=== PATIENT | male | born 1975 | race Caucasian/White ===

== ENCOUNTER 2020-10-20 14:51 | Emergency (ER) | payer BC ==
[~2020-10-20] VITALS: Ht 165.1 cm; Wt 77.1 kg
--- NOTE | 2020-10-20 15:17 | ED Lower Extremity ---
General Chief Complaint: Lower Extremity Stated Complaint: CALLUSES ON R FOOT Source: patient Exam Limitations: language barrier History of Present Illness Date Seen by Provider: Oct 20, 2020 Time Seen by Provider: 15:02 Initial Comments This is a well-appearing 45-year-old male who presents to ER with complaints of right ankle pain. States he rolled his ankle, proximal a 1 week ago and has persistent swelling and pain. Has tried Tylenol with minimal relief. Denies numbness and tingling. No other injuries. Allergies and Home Medications Allergies Coded Allergies: No Known Drug Allergies (Unverified , 10/20/20) Patient Home Medication List Home Medication List Reviewed: Yes Review of Systems Constitutional: no symptoms reported EENTM: no symptoms reported Respiratory: no symptoms reported Cardiovascular: no symptoms reported Gastrointestinal: no symptoms reported Genitourinary: no symptoms reported Musculoskeletal: see HPI Skin: no symptoms reported Psychiatric/Neurological: No Symptoms Reported Physical Exam Vital Signs Vital Signs - First Documented 10/20/20 15:16 Temp 36.5 Pulse 97 Resp 16 B/P (MAP) 147/91 (109) Pulse Ox 98 O2 Delivery Room Air Capillary Refill : Height, Weight, BMI Height: '" Weight: lbs. oz. kg; BMI Method: General Appearance: WD/WN, no apparent distress Neck: full range of motion, normal inspection Cardiovascular: regular rate, rhythm, no murmur Respiratory: lungs clear, normal breath sounds Hips: bilateral hip non-tender, bilateral hip normal inspection, bilateral hip normal range of motion Legs: bilateral leg non-tender, bilateral leg normal inspection, bilateral leg normal range of motion Knees: bilateral knee non-tender, bilateral knee normal inspection, bilateral knee normal range of motion Ankles: left ankle non-tender, left ankle normal inspection, left ankle normal range of motion, left ankle no evidence of injury; right ankle bone tenderness, right ankle limited range of motion Feet: bilateral foot non-tender, bilateral foot normal inspection, bilateral foot normal range of motion Progress/Results/Core Measures Results/Orders My Orders Orders - JC MENA CAFE COOK Ankle, Right, 3 Views (10/20/20 15:10) Ibuprofen Tablet (Motrin Tablet) (10/20/20 15:30) Medications Given in ED Vital Signs/I&O 10/20/20 10/20/20 15:16 16:30 Temp 36.5 36.9 Pulse 97 90 Resp 16 16 B/P (MAP) 147/91 (109) 136/93 Pulse Ox 98 97 O2 Delivery Room Air Room Air Progress Progress Note : Progress Note Pt. examined, in no acute distress. Orders placed for ankle x-ray. X-ray shows mild irregularity of the tip of the medial malleolus. On exam he has point tenderness over this region. Placed in walking boot and recommended follow up with ortho provider of choice. Reviewed discharge POC and he is agreeable with plan. Diagnostic Imaging Diagonstic Imaging: Xray Plain Films/CT/US/NM/MRI: ankle Comments NAME: TAMIR MENJIVAR [facility] REC#: [id number] PT STATUS: REG ER : 1975 PHYSICIAN: JC MENA CAFE COOK ADMIT DATE: 10/20/20/ER Signed Date of Exam:10/20/20 ANKLE, RIGHT, 3 VIEWS EXAMINATION: Right ankle radiograph, 3 views. COMPARISON: None. HISTORY: 45-year-old male, fall. Right ankle pain. FINDINGS: There is slight irregularity of the tip of the medial malleolus. There is no otherwise identified potential acute fracture. The alignment of the ankle mortise is unremarkable. There is no tibiotalar joint effusion. The joint spaces are well preserved. There is no radiopaque foreign body. IMPRESSION: 1. Mild irregularity of the tip of the medial malleolus which could relate to a very small minimally displaced fracture. Recommend correlation for focal pain at this exact site. 2. No otherwise identified potential acute fracture. 3. Unremarkable alignment of the ankle mortise. Dictated by: Dictated on workstation # [id number] Dict: 10/20/20 1551 Trans: 10/20/20 1701 [facility] [id number] Interpreted by: ANNA CALDERON MD Electronically signed by: ANNA CALDERON MD 10/20/20 1701 Departure Impression Primary Impression: Ankle pain Disposition: HOME, SELF-CARE Condition: Improved Departure-Patient Inst. Decision time for Depature: 15:56 Referrals: NO,LOCAL PHYSICIAN (PCP/Family) Primary Care Physician Patient Instructions: Ankle Fracture (DC) Add. Discharge Instructions: Plan: 1. Discharge home. Walk with a walker to reduce the amount of weight you put on your leg. 2. Rest, ice 20 minutes at a time every couple of hours for swelling and pain, use gómez wrap and keep elevated above your heart as much as possible. 3. May take Tylenol or Ibuprofen as needed for pain per package directions. Do not take more than directed. 4. Follow up with ortho provider of your choice. Local providers include Dr. Owen in [place] [phone]. Please call the office for appointment. 5. Return for any new or concerning symptoms. All discharge instructions reviewed with patient and/or family. Voiced understanding. Work/School Note: Work Release Form Other Restrictions Listed Below: Non weight bearing until follow up with Ortho provider. Restrictions: No weight bearing, must use crutches to walk. Use crutches until follow up. JC MENA APRN Oct 20, 2020 15:17
[2020-10-20] MEDS ORDERED: IBUPROFEN 600 MG (MOTRIN) TAB PO ONE (15:30)
--- NOTE | 2020-10-20 15:54 | Diagnostic Imaging Report ---
EXAMINATION: Right ankle radiograph, 3 views. COMPARISON: None. HISTORY: 45-year-old male, fall. Right ankle pain. FINDINGS: There is slight irregularity of the tip of the medial malleolus. There is no otherwise identified potential acute fracture. The alignment of the ankle mortise is unremarkable. There is no tibiotalar joint effusion. The joint spaces are well preserved. There is no radiopaque foreign body. IMPRESSION: 1. Mild irregularity of the tip of the medial malleolus which could relate to a very small minimally displaced fracture. Recommend correlation for focal pain at this exact site. 2. No otherwise identified potential acute fracture. 3. Unremarkable alignment of the ankle mortise. Dictated by: Dictated on workstation # [id number]
--- NOTE | 2020-10-20 16:28 | NUR ---
Waiting on DME to bring crutches.
--- NOTE | 2020-10-20 16:29 | NUR ---
DME arrived with crutches at this time.
[2020-10-20 16:30] VITALS: BP 136/93
== END 2020-10-20 16:30 | disposition home or self-care (01) ==
LOC: ER 14:55
DX: M25.571 Pain in right ankle and joints of right foot (principal)
CPT/HCPCS: 73610

== ENCOUNTER 2021-09-05 08:58 | Emergency (ER) | payer BC ==
[~2021-09-05] VITALS: Ht 165 cm; Wt 70.0 kg
[2021-09-05 09:48] LABS: BASOPHILS # (AUTO) 0.1 10^3/uL (0.0-0.1); BASOPHILS % (AUTO) 1 % (0-10); EOSINOPHILS # (AUTO) 0.9 10^3/uL (0.0-0.3); EOSINOPHILS % (AUTO) 15 % (0-10); HEMATOCRIT 44 % (40-54); HEMOGLOBIN 15.5 g/dL (13.3-17.7); LYMPHOCYTES # (AUTO) 2.2 10^3/uL (1.0-4.0); LYMPHOCYTES % (AUTO) 35 % (12-44); MEAN CORPUSCULAR HEMOGLOBIN 30 pg (25-34); MEAN CORPUSCULAR HGB CONC 36 g/dL (32-36); MEAN CORPUSCULAR VOLUME 84 fL (80-99); MEAN PLATELET VOLUME 9.9 fL (9.0-12.2); MONOCYTES # (AUTO) 0.6 10^3/uL (0.0-1.0); MONOCYTES % (AUTO) 9 % (0-12); NEUTROPHILS # (AUTO) 2.4 10^3/uL (1.8-7.8); NEUTROPHILS % (AUTO) 39 % (42-75); PLATELET COUNT 253 10^3/uL (130-400); WHITE BLOOD COUNT 6.2 10^3/uL (4.3-11.0)
[2021-09-05 09:53] LABS: ALBUMIN 4.2 GM/DL (3.2-4.5); POTASSIUM 3.7 MMOL/L (3.6-5.0)
[2021-09-05 09:54] LABS: CALCIUM 8.7 MG/DL (8.5-10.1)
[2021-09-05 09:55] LABS: TOTAL PROTEIN 6.8 GM/DL (6.4-8.2)
[2021-09-05 09:57] LABS: BILIRUBIN,TOTAL 0.6 MG/DL (0.1-1.0)
[2021-09-05 09:59] LABS: CREATININE SERUM 0.81 MG/DL (0.60-1.30)
[2021-09-05 10:06] LABS: BAND NEUTROPHILS 3 %; EOSINOPHILS % (MANUAL) 12 %; LYMPHOCYTES % (MANUAL) 40 %; MONOCYTES % (MANUAL) 5 %; NEUTROPHILS % (MANUAL) 40 %; RBC MORPH NORMAL
[2021-09-05 10:17] LABS: BILIRUBIN,URINE NEGATIVE (NEGATIVE); CLARITY,URINE CLEAR; COLOR,URINE YELLOW; GLUCOSE, URINE (UA) NEGATIVE (NEGATIVE); KETONES,URINE NEGATIVE (NEGATIVE); LEUKOCYTE ESTERASE ,URINE NEGATIVE (NEGATIVE); NITRITE,URINE NEGATIVE (NEGATIVE); PROTEIN,URINE NEGATIVE (NEGATIVE)
[2021-09-05 10:25] LABS: BACTERIA,URINE NEGATIVE /HPF
--- NOTE | 2021-09-05 11:28 | Diagnostic Imaging Report ---
PROCEDURE: US Gallbladder. TECHNIQUE: Multiple real-time grayscale images were obtained over the right upper quadrant in various projections. INDICATION: Right upper quadrant abdominal pain. COMPARISON: None. FINDINGS: There is fatty infiltration of the liver with a tiny mass near the gallbladder fossa, likely focal sparing. This area measures approximately [address] imaging for further evaluation. Otherwise, the gallbladder, bile ducts, and portal venous system are grossly unremarkable. The pancreas, IVC, aorta, and right kidney are poorly visualized. There is no ascites. Common bile duct is nondilated at 5 mm. IMPRESSION: 1. Likely focal fatty sparing near the gallbladder. CT imaging recommended to exclude mass lesion. 2. Normal-appearing gallbladder and bile ducts. 3. No ascites identified. Dictated by: Dictated on workstation # [id number]
[2021-09-05] MEDS ORDERED: FAMOTIDINE 20MG/2ML IV (PEPCID) IV STA (11:43)
[2021-09-05] MEDS ORDERED: ONDANSETRON 4 MG/2 ML (SDV) Z0FRAN IVP ONE (11:45)
[2021-09-05] MEDS ORDERED: LIDOCAINE 2% VISCOUS 15 ML UDC PO ONE (11:45)
[2021-09-05] MEDS ORDERED: ANTACID SUSP 30 ML UDC (MYLANTA) PO ONE (11:45)
[2021-09-05] MEDS ORDERED: NS 100 ML (IVPB) BAG IV ONE (12:00)
[2021-09-05] MEDS ORDERED: HOLD METFORMIN - RECEIVED CONTRAST 20 ML VIAL IV SCH (12:00)
[2021-09-05] MEDS ORDERED: IOHEXOL 350 MG/ML 100 ML (OMNIPAQUE 350) VIAL IV ONE (12:00)
--- NOTE | 2021-09-05 12:22 | Diagnostic Imaging Report ---
PROCEDURE: CT abdomen and pelvis with contrast. TECHNIQUE: Multiple contiguous axial images were obtained through the abdomen and pelvis after administration of intravenous contrast. Auto Exposure Controls were utilized during the CT exam to meet ALARA standards for radiation dose reduction. All CT scans use one or more of the following dose optimizing techniques: automated exposure control, MA and/or KvP adjustment based on patient size and exam type or iterative reconstruction. INDICATION: Abnormal ultrasound describing a possible liver mass. This study is performed for further evaluation. COMPARISON: Correlation is made with the gallbladder ultrasound performed earlier this same day. FINDINGS: The lung bases are clear. The liver demonstrates diffuse low density, consistent with hepatic steatosis. There is an area of sparing in the left lobe adjacent to the gallbladder which may account for the abnormalities noted by ultrasound. No discrete liver mass is identified. The gallbladder is unremarkable. There is no biliary ductal dilatation. The pancreas and spleen are unremarkable. There is no adrenal mass. The kidneys are unremarkable. There is no hydronephrosis. The aorta is nonaneurysmal. The bowel loops are of normal caliber. There is no obstruction. No free fluid or fluid collection is identified. The bladder is unremarkable. The prostate is unremarkable. IMPRESSION: 1. Hepatic steatosis with areas of focal sparing, likely accounting for the sonographic abnormalities. No discrete liver mass is identified. 2. No acute feature in the abdomen or pelvis is identified. Dictated by: Dictated on workstation # [id number]
--- NOTE | 2021-09-05 13:14 | ED Abdominal Pain ---
General Chief Complaint: Abdominal/GI Problems Stated Complaint: ABD PAIN Nursing Triage Note: PT AMB TO RM 6 PT CO OF ABD PAIN R UPPER ABD STARTED LAST PM RATES 07/10. PT STATES HAD A COUPLE WEEKS AGO AND WENT AWAY. DENIES N/V/D STATES HAS NORMAL BM TODAY. DENIES DIFF W URINATION Source of Information: Patient, Family Exam Limitations: Language Barrier History of Present Illness Date Seen by Provider: Sep 05, 2021 Time Seen by Provider: 09:22 Initial Comments This 46-year-old gentleman presents to the emergency room with complaints of right upper quadrant and epigastric pain for about 2 weeks. Pain is waxing and waning and does not necessarily seem to be correlated with eating or drinking. He denies nausea, vomiting, diarrhea, constipation, fever, or urinary changes. He has not been assessed for this pain in the past. He does not have a medical provider. He speaks [place]. 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 Allergies and Home Medications Allergies Coded Allergies: No Known Drug Allergies (Unverified , 10/20/20) Patient Home Medication List Home Medication List Reviewed: Yes Omeprazole (Omeprazole) 20 Mg Capsule., 20 MG PO BID Prescribed by: DAVIE DAVIS on 09/05/21 1331 Review of Systems Review of Systems Constitutional: no symptoms reported EENTM: No Symptoms Reported Respiratory: No Symptoms Reported Cardiovascular: No Symptoms Reported Gastrointestinal: See HPI Genitourinary: No Symptoms Reported Musculoskeletal: no symptoms reported Skin: no symptoms reported Psychiatric/Neurological: No Symptoms Reported Endocrine: No Symptoms Reported Hematologic/Lymphatic: No Symptoms Reported Past Fxcsove-Dhlifc-Ugydph Hx Patient Social History Tobacco Use?: No Substance use?: No Alcohol Use?: No Pt feels they are or have been: No Immunizations Up To Date Second COVID19 Vaccination Delfino: 2 DOSES COVID19 Vaccine Concrete Block Mason: MODERNDalton Seasonal Allergies Seasonal Allergies: No Past Medical History Surgeries: No Respiratory: No Cardiac: No Neurological: No Genitourinary: No Gastrointestinal: No Musculoskeletal: No Endocrine: No HEENT: No Cancer: No Psychosocial: No Integumentary: No Blood Disorders: No Physical Exam Vital Signs Vital Signs - First Documented 09/05/21 09:10 Temp 36.5 Pulse 78 Resp 18 B/P (MAP) 146/95 (112) Pulse Ox 95 Capillary Refill : Less Than 3 Seconds Height/Weight/BMI Height: '" Weight: lbs. oz. kg; 25.00 BMI Method: General Appearance: WD/WN, no apparent distress HEENT: normal ENT inspection Neck: normal inspection Respiratory: lungs clear, normal breath sounds, no respiratory distress Cardiovascular: regular rate, rhythm, no edema, no murmur Gastrointestinal: normal bowel sounds, soft, tenderness (Mild to moderate in the right upper quadrant and epigastrium) Extremities: normal inspection, no pedal edema Neurologic/Psychiatric: classroom assistant II-XII nml as tested, no motor/sensory deficits, alert, normal mood/affect, oriented x 3 Skin: normal color, warm/dry Progress/Results/Core Measures Results/Orders Lab Results Laboratory Tests Test 09/05/21 09:20 09/05/21 10:10 Range/Units White Blood Count 6.2 4.3-11.0 10^3/uL Red Blood Count 5.17 4.30-5.52 10^6/uL Hemoglobin 15.5 13.3-17.7 g/dL Hematocrit 44 40-54 % Mean Corpuscular Volume 84 80-99 fL Mean Corpuscular Hemoglobin 30 25-34 pg Mean Corpuscular Hemoglobin Concent 36 32-36 g/dL Red Cell Distribution Width 12.9 10.0-14.5 % Platelet Count 253 130-400 10^3/uL Mean Platelet Volume 9.9 9.0-12.2 fL Immature Granulocyte % (Auto) 0 % Neutrophils (%) (Auto) 39 L 42-75 % Lymphocytes (%) (Auto) 35 12-44 % Monocytes (%) (Auto) 9 0-12 % Eosinophils (%) (Auto) 15 H 0-10 % Basophils (%) (Auto) 1 0-10 % Neutrophils # (Auto) 2.4 1.8-7.8 10^3/uL Lymphocytes # (Auto) 2.2 1.0-4.0 10^3/uL Monocytes # (Auto) 0.6 0.0-1.0 10^3/uL Eosinophils # (Auto) 0.9 H 0.0-0.3 10^3/uL Basophils # (Auto) 0.1 0.0-0.1 10^3/uL Immature Granulocyte # (Auto) 0.0 0.0-0.1 10^3/uL Neutrophils % (Manual) 40 % Lymphocytes % (Manual) 40 % Monocytes % (Manual) 5 % Eosinophils % (Manual) 12 % Band Neutrophils 3 % Blood Morphology Comment NORMAL Sodium Level 139 135-145 MMOL/L Potassium Level 3.7 3.6-5.0 MMOL/L Chloride Level 107 98-107 MMOL/L Carbon Dioxide Level 21 21-32 MMOL/L Anion Gap 11 5-14 MMOL/L Blood Urea Nitrogen 12 7-18 MG/DL Creatinine 0.81 0.60-1.30 MG/DL Estimat Glomerular Filtration Rate 103 BUN/Creatinine Ratio 15 Glucose Level 135 H 70-105 MG/DL Calcium Level 8.7 8.5-10.1 MG/DL Corrected Calcium 8.5 8.5-10.1 MG/DL Total Bilirubin 0.6 0.1-1.0 MG/DL Aspartate Amino Transf (AST/SGOT) 20 5-34 U/L Alanine Aminotransferase (ALT/SGPT) 35 0-55 U/L Alkaline Phosphatase 47 40-136 U/L C-Reactive Protein High Sensitivity 0.10 0.00-0.50 MG/DL Total Protein 6.8 6.4-8.2 GM/DL Albumin 4.2 3.2-4.5 GM/DL Lipase 41 8-78 U/L Urine Color YELLOW Urine Clarity CLEAR Urine pH 6.0 5-9 Urine Specific [place] 1.015 L 1.016-1.022 Urine Protein NEGATIVE NEGATIVE Urine Glucose (UA) NEGATIVE NEGATIVE Urine Ketones NEGATIVE NEGATIVE Urine Nitrite NEGATIVE NEGATIVE Urine Bilirubin NEGATIVE NEGATIVE Urine Urobilinogen 0.2 < = 1.0 MG/DL Urine Leukocyte Esterase NEGATIVE NEGATIVE Urine RBC (Auto) TRACE-I H NEGATIVE Urine RBC NONE /HPF Urine WBC NONE /HPF Urine Crystals NONE /LPF Urine Bacteria NEGATIVE /HPF Urine Casts NONE /LPF Urine Mucus NEGATIVE /LPF Urine Culture Indicated NO My Orders Orders - DAVIE SEPULVEDA MD Ua Culture If Indicated (09/05/21 09:22) Cbc With Automated Diff (09/05/21 09:42) Comprehensive Metabolic Panel (09/05/21 09:42) Hs C Reactive Protein (09/05/21 09:42) Lipase (09/05/21 09:42) Ed Iv/Invasive Line Start (09/05/21 09:42) Manual Differential (09/05/21 09:20) Us Gallbladder 06048 (09/05/21 10:25) Ondansetron Injection (Zofran Injectio (09/05/21 11:45) Lidocaine 2% Viscous 15 Ml (Xylocaine Vi (09/05/21 11:45) Antacid Suspension (Mylanta Suspension (09/05/21 11:45) Famotidine Injection (Pepcid Injection) (09/05/21 11:43) Ct Abdomen/Pelvis W (09/05/21 11:43) Iohexol Injection (Omnipaque 350 Mg/Ml 1 (09/05/21 12:00) Received Contrast (Hold Metformin- Contr (09/05/21 12:00) Ns (Ivpb) (Sodium Chloride 0.9% Ivpb Bag (09/05/21 12:00) Medications Given in ED Current Medications Medications Dose Ordered Sig/Tisha Route Start Time Stop Time Status Last Admin Dose Admin Al Hydrox/Mg Hydrox/Simethicone 30 ml ONCE ONCE PO 09/05/21 11:45 09/05/21 11:46 DC 09/05/21 12:15 30 ML Iohexol 100 ml ONCE ONCE IV 09/05/21 12:00 09/05/21 12:01 DC 09/05/21 12:12 88 ML Lidocaine HCl 15 ml ONCE ONCE PO 09/05/21 11:45 09/05/21 11:46 DC 09/05/21 12:15 15 ML Ondansetron HCl 4 mg ONCE ONCE IVP 09/05/21 11:45 09/05/21 11:46 DC 09/05/21 12:15 4 MG Sodium Chloride 100 ml ONCE ONCE IV 09/05/21 12:00 09/05/21 12:01 DC 09/05/21 12:12 100 ML Vital Signs/I&O 09/05/21 09/05/21 09:10 13:47 Temp 36.5 Pulse 78 78 Resp 18 18 B/P (MAP) 146/95 (112) 136/88 Pulse Ox 95 95 Blood Pressure Mean: 112 Progress Progress Note : Progress Note Labs were unremarkable. Patient was evaluated further with gallbladder ultrasound. There was no pathology with gallbladder but there is notable fatty liver disease. There is also a cystlike or masslike structure medially, and it was suggested by the radiologist that further evaluation be obtained with CT imaging. CT revealed no mass. There was notable fatty liver disease. Patient received a GI cocktail with Pepcid and Zofran which completely relieved his pain and tenderness. See discharge instructions for further discussion. Diagnostic Imaging Diagonstic Imaging: Ultrasound Plain Films/CT/US/NM/MRI: abdomen Comments Ultrasound discussed with the photonics engineering technician and report reviewed. See report below: NAME: OTTO GARNETT [facility] REC#: [id number] PT STATUS: REG ER : 1975 PHYSICIAN: DAVIE SEPULVEDA MD ADMIT DATE: 09/05/21/ER Draft Date of Exam:09/05/21 US GALLBLADDER [id number] PROCEDURE: US Gallbladder. TECHNIQUE: Multiple real-time grayscale images were obtained over the right upper quadrant in various projections. INDICATION: Right upper quadrant abdominal pain. COMPARISON: None. FINDINGS: There is fatty infiltration of the liver with a tiny mass near the gallbladder fossa, likely focal sparing. This area measures approximately [address] imaging for further evaluation. Otherwise, the gallbladder, bile ducts, and portal venous system are grossly unremarkable. The pancreas, IVC, aorta, and right kidney are poorly visualized. There is no ascites. Common bile duct is nondilated at 5 mm. IMPRESSION: 1. Likely focal fatty sparing near the gallbladder. CT imaging recommended to exclude mass lesion. 2. Normal-appearing gallbladder and bile ducts. 3. No ascites identified. Dictated on workstation # [id number] Dict: 09/05/21 1122 Trans: 09/05/21 1128 AS6 [id number] Interpreted by: NICOLETTE FARMER Diagonstic Imaging: CT Plain Films/CT/US/NM/MRI: abdomen, pelvis Comments CT abdomen and pelvis viewed by me and report reviewed. See report below: NAME: OTTO GARNETT [facility] REC#: [id number] PT STATUS: REG ER : 1975 PHYSICIAN: DAVIE SEPULVEDA MD ADMIT DATE: 09/05/21/ER Draft Date of Exam:09/05/21 CT ABDOMEN/PELVIS W PROCEDURE: CT abdomen and pelvis with contrast. TECHNIQUE: Multiple contiguous axial images were obtained through the abdomen and pelvis after administration of intravenous contrast. Auto Exposure Controls were utilized during the CT exam to meet ALARA standards for radiation dose reduction. All CT scans use one or more of the following dose optimizing techniques: automated exposure control, MA and/or KvP adjustment based on patient size and exam type or iterative reconstruction. INDICATION: Abnormal ultrasound describing a possible liver mass. This study is performed for further evaluation. COMPARISON: Correlation is made with the gallbladder ultrasound performed earlier this same day. FINDINGS: The lung bases are clear. The liver demonstrates diffuse low density, consistent with hepatic steatosis. There is an area of sparing in the left lobe adjacent to the gallbladder which may account for the abnormalities noted by ultrasound. No discrete liver mass is identified. The gallbladder is unremarkable. There is no biliary ductal dilatation. The pancreas and spleen are unremarkable. There is no adrenal mass. The kidneys are unremarkable. There is no hydronephrosis. The aorta is nonaneurysmal. The bowel loops are of normal caliber. There is no obstruction. No free fluid or fluid collection is identified. The bladder is unremarkable. The prostate is unremarkable. IMPRESSION: 1. Hepatic steatosis with areas of focal sparing, likely accounting for the sonographic abnormalities. No discrete liver mass is identified. 2. No acute feature in the abdomen or pelvis is identified. Dictated on workstation # [id number] Dict: 09/05/21 1215 Trans: 09/05/21 1222 [id number] Interpreted by: JUSTIN VIVAR MD Departure Impression Primary Impression: Right upper quadrant pain Additional Impressions: Epigastric pain Fatty liver Disposition: 01 HOME, SELF-CARE Condition: Stable Departure-Patient Inst. Decision time for Depature: 13:28 Referrals: NO,LOCAL PHYSICIAN (PCP/Family) Primary Care Physician Patient Instructions: Abdominal Pain, Adult ED, Gastritis, Nonalcoholic Fatty Liver Disease Add. Discharge Instructions: The exact cause of your abdominal pain is uncertain. It may be related to inflammation of part of your gastrointestinal tract such as your stomach, esophagus, or first part of your small intestine. Another cause may be fatty liver disease. Use the antiacid medication as prescribed. If you do not improve within 2 weeks, please follow-up with a primary care provider to discuss further work-up. This might include scoping your esophagus and stomach with a camera. Avoid the following: Eating large meals, eating close to bedtime, caffeine, carbonation, chocolate, citrus fruits and juices, tomato products, mints, spicy foods, fatty or greasy foods, alcohol, tobacco, NSAID medications such as ibuprofen or naproxen, or anything else you know irritates your stomach. Fatty liver can be improved by slow weight loss. Please establish with a primary care provider as soon as possible for routine health care and for follow-up on this ER visit. Call with questions or concerns. Return to the ER if you have worsening symptoms. All discharge instructions reviewed with patient and/or family. Voiced understanding. Scripts Omeprazole (Omeprazole) 20 Mg Capsule. 20 MG PO BID, #60 CAP Prov: DAVIE SEPULVEDA MD 09/05/21 DAVIE SEPULVEDA MD Sep 05, 2021 13:14
[2021-09-05] MEDS ORDERED: OMEP20CA18 PO (13:31)
[2021-09-05 13:47] VITALS: BP 136/88
== END 2021-09-05 13:47 | disposition home or self-care (01) ==
LOC: EDUNIT# 08:58 → ER 09:01
DX: R10.13 Epigastric pain (principal); K76.0 Fatty (change of) liver, not elsewhere classified
CPT/HCPCS: 36415; 74177; 76705; 80053; 81000; 83690; 85007; 85027; 86141